=== PATIENT | male | born 1945 | race Caucasian/White ===

== ENCOUNTER 2017-05-26 13:58 | Outpatient (CLI) | payer MEDICARE, OTHER ==
--- NOTE | 2017-05-27 09:22 | XRAY Report ---
TWO VIEW CHEST: 05/26/2017 COMPARISON: Frontal chest 02/28/2011. INDICATION: Nodular density. TECHNIQUE: Two views. FINDINGS: There is scarring of the left lung base. The lungs appear otherwise clear. No pneumothorax or pleural effusion. Despite the history no nodules are demonstrated on plain film. Mediastinum unremarkable otherwise. IMPRESSION: DESPITE THE HISTORY, NO NODULES OR CONCERNING THORACIC FINDINGS ARE DEMONSTRATED. TD: 05/27/2017 09:22 [facility] Dol[facility]
== END 2017-05-26 13:59 | disposition home or self-care (01) ==
LOC: DI.N 13:58
PROVIDERS: ATTEND Family Medicine
DX: J98.4 Other disorders of lung (principal)
CPT/HCPCS: 71046

== ENCOUNTER 2018-06-15 13:25 | Outpatient (CLI) | payer MEDICARE, OTHER ==
--- NOTE | 2018-06-15 16:31 | CT Report ---
Reason: [facility] FOR SCREENING FOR CARDIO Procedure Date: 06/15/2018 Accession Number: [id number] / [id number] Procedure: CT - Low Dose Lung Cancer Screen CPT Code: FULL RESULT: EXAM CT LUNG SCREEN EXAM DATE: 06/15/2018 01:45 PM. HISTORY: 47-crsn-oyh-year-old patient with [id number] smoking history. Currently smoking: Yes. COMPARISON: CHEST 2 VIEW 05/26/2017 2:12 PM. TECHNIQUE: CT examination of the entire thorax without contrast was performed using low-dose technique. Thin section coronal, axial, sagittal and MIP axial images were obtained. In accordance with CT protocol optimization, one or more of the following dose reduction techniques were utilized for this exam: automated exposure control, adjustment of mA and/or KV based on patient size, or use of iterative reconstructive technique. FINDINGS: Nodules: Right upper lobe: 2 mm calcific density nodule 93/4. Right middle lobe: None. Right lower lobe: 5 mm semisolid nodule 141/4. Left upper lobe: 2 mm calcific density nodule 80/4. Left lower lobe: Possible 7 mm pulmonary nodule versus rounded atelectasis associated with a vertical band of pleural parenchymal opacity 141/4. Emphysema: None. Pleura: Focal pleural-based calcification left posterior pleura 114/4. Aorta: Unremarkable. Mediastinum: Unremarkable. Coronary calcifications: Mild calcification in the left anterior descending coronary artery and proximal circumflex. Other pulmonary findings: 2 thin vertical bands of pleural parenchymal opacity in the left lung base favoring scar. Thin vertical band pleural parenchymal opacity in the medial right lung base possibly additional scar. Other extrapulmonary findings: None. IMPRESSION: Lung-RADS ASSESSMENT CATEGORY: 3 - probably benign. This designation is predominantly on the basis of possible 7 mm nodule versus rounded atelectasis associated with left basilar pleural-parenchymal scar. Probability of malignancy: 1-2% RECOMMENDATION: Recommended follow up based on Lung-RADS guidelines. RADIA
== END 2018-06-15 13:26 | disposition home or self-care (01) ==
LOC: DI 13:25
PROVIDERS: ATTEND Internal Medicine
DX: Z12.2 Encounter for screening for malignant neoplasm of respiratory organs (principal); F17.210 Nicotine dependence, cigarettes, uncomplicated

== ENCOUNTER 2018-08-25 14:17 | Outpatient (CLI) | payer OTHER, MEDICARE ==
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
== END 2018-08-25 14:18 | disposition home or self-care (01) ==
LOC: DI 14:17
PROVIDERS: ATTEND Physician Assistant Medical
DX: M50.323 Other cervical disc degeneration at C6-C7 level (principal)
CPT/HCPCS: 72040

== ENCOUNTER 2019-03-20 09:25 | Outpatient (CLI) | payer MEDICARE, OTHER | END 2019-03-20 09:26 | disposition short-term general hospital (02) | LOC: EMS 09:25 | PROVIDERS: ATTEND Surgery | DX: R53.1 Weakness (principal); R55 Syncope and collapse; W18.39XA Other fall on same level, initial encounter; Y93.01 Activity, walking, marching and hiking; Y92.009 Unspecified place in unspecified non-institutional (private) residence as the place of occurrence of the external cause | CPT/HCPCS: A0425; A0429 ==

== ENCOUNTER 2020-02-21 12:26 | Outpatient (CLI) | payer MEDICARE, OTHER ==
--- NOTE | 2020-02-21 16:38 | CT Report ---
PROCEDURE: SOFT TISSUE NECK WO INDICATIONS: NON-HODGKIN LYMPHOMA TECHNIQUE: Non-contrast 3.0 mm axial sections acquired from the sella to the aortic arch. Additiona l oblique axial 3.0 mm sections acquired through the pharynx. 3 mm thick coronal reformats were gene rated. For radiation dose reduction, the following was used: automated exposure control, adjustment of mA and/or kV according to patient size. COMPARISON: Correlation is made with the accompanying chest CT, 02/21/2020. FINDINGS: Image quality: Excellent. Lymph nodes: Prominently enlarged lymph nodes are seen throughout the neck. The largest solitary lymp h node on the left can be seen within the left supraclavicular region, as on series 4 image 80 measur ing 2.5 x 1.9 cm. The largest solitary lymph node can on the right can be seen within the supraclavic ular region deeply measuring 5.3 x 5 cm in greatest axial dimension. Enlarged axillary and mediastinal lymph nodes are partially seen on this study. Vessels: Non-opacified vessels appear normal in caliber. Neck spaces: The oropharynx, nasopharynx, and pharynx demonstrate no mucosal lesions. The vocal cor ds, false vocal cords, pyriform sinuses, epiglottis, vallecula, and tongue base all appear normal. E xtramucosal spaces appear unremarkable. Glands: The parotid and submandibular glands appear normal, without stones. The thyroid is normal i n size. Miscellaneous: Visualized brain and orbits appear normal. There is partial visualization of a small to moderate right-sided pleural effusion. Superficial soft tissues appear normal. Bony degenerative changes are seen, which are worst at the C6-C7 level, where there is moderate to se roxanna disc space narrowing. IMPRESSION: Prominently enlarged lymph nodes are seen throughout the neck, which are consistent with the given hi story of lymphoma. The largest neck lymph nodes can be seen within the supraclavicular regions. Reviewed by: Miguelangel Monroe MD on 02/21/2020 3:36 PM [place] Approved by: Miguelangel Monroe MD on 02/21/2020 3:36 PM [place] Station ID: [id number]
--- NOTE | 2020-02-21 17:05 | CT Report ---
PROCEDURE: CHEST WO INDICATIONS: NON-HODGKIN LYMPHOMA TECHNIQUE: Noncontrast 5 mm thick sections acquired from the pulmonary apices to the posterior costophrenic angl es. 7 mm thick coronal and sagittal MIP reformats were then acquired. For radiation dose reduction, the following was used: automated exposure control, adjustment of mA and/or kV according to patient size. COMPARISON: CT soft tissue neck without contrast dated 02/21/2020, CT abdomen and pelvis without cont rast dated 02/21/2020 FINDINGS: Image quality: Excellent. Lungs and pleura: There is a thick-walled cavitary mass present in the left upper lobe on image 117/3 measuring approximately 3.2 x 2.5 cm. Right hilar adenopathy compresses on central right pulmonary b ronchi resulting in partial collapse of the right middle lobe and subtotal collapse of the right lowe r lobe. There is a moderately large right pleural effusion and a small left pleural effusion. Mediastinum: Heart size is normal. No pericardial effusion. There is extensive mediastinal adenopat hy. There are numerable enlarged superior mediastinal lymph nodes. On image 24/2 is a right paratrach eal lymph node measuring approximately 4.1 x 3.2 cm. In AP window lymph node on image 27/2 measures a pproximately 4.8 x 3.3 cm. A second AP window lymph node on that same image measures approximately 3. 3 x 2.3 cm. There is a huge subcarinal lymph node measuring 8.3 x 4.6 cm. Thoracic aorta and central pulmonary arteries are normal in size. Esophagus is normal in caliber. No hiatal hernia. Bones and chest wall: No suspicious bony lesions. No vertebral body compression fractures. There is a very large lower right cervical chains/supraclavicular lymph node, which was described on the neck CT. On current image 6/2 it measures 5.3 x 4.4 cm. There is extensive bilateral axillary adenopathy. Innumerable bilateral axillary lymph node chain nodes are present. The largest single right axillary lymph node measures 3.7 x 2.6 cm on current image 15/2. The largest single left axillary lymph node measures approximately 1.9 x 2.5 cm. The thyroid is normal in size. Abdomen: Visualized upper abdominal solid organs and bowel loops appear normal in the absence of con trast. IMPRESSION: 1. Cervical adenopathy as described in the prior report. 2. Remarkably extensive bilateral axillary adenopathy. 3. Remarkably extensive mediastinal adenopathy. 4. Left upper lobe cavitary mass measuring 3.2 x 2.5 cm. 5. Partial atelectasis of the right middle lobe and subtotal atelectasis of the right lower lobe, lik vee secondary to compression on central right bronchi. 6. Moderate to large right pleural effusion, small left pleural effusion. Reviewed by: Silverio Venegas MD on 02/21/2020 5:04 PM PST Approved by: Silverio Venegas MD on 02/21/2020 5:04 PM PST Station ID: [id number]
--- NOTE | 2020-02-21 17:11 | CT Report ---
PROCEDURE: Abdomen/Pelvis WO INDICATIONS: NON-HODGKIN LYMPHOMA TECHNIQUE: Noncontrast 5 mm thick sections acquired from the diaphragms to the symphysis. 5 mm coronal and sagi ttal reformats were then performed. For radiation dose reduction, the following was used: automated exposure control, adjustment of mA and/or kV according to patient size. COMPARISON: Noncontrast chest CT from the same date. FINDINGS: Image quality: Excellent. ABDOMEN: Lung bases: Moderately large right pleural effusion. Right basilar atelectasis. Small left pleural ef fusion with minimal left basilar atelectasis. Heart size is normal. Solid organs: Liver and spleen are normal in size. Gallbladder is probably present and significantl y contracted. Pancreas is normal in contours. No adrenal nodules. Kidneys are normal in size, with out hydronephrosis or nephrolithiasis. Peritoneum and bowel: Unenhanced bowel loops demonstrate normal wall thickness and caliber. No free fluid or air. Nodes and vessels: There are multiple significantly enlarged periaortic lymph nodes. Findings include a lymph node and to the right of the aorta on image 47/2 measuring 2.5 cm. A lymph node to the left of the aorta on image 8/2 measures 3.0 cm. There is bilateral common iliac and external iliac lymphad enopathy. The single largest lymph node is a distal right external iliac/inguinal lymph node on image 70/2 which measures 7.5 x 4.8 cm. Numerous other common iliac and external iliac lymph nodes are jose de jesus ntified. There is somewhat difficult to measure in the absence of intravenous contrast. A distal left external iliac/inguinal lymph node on image 73/2 measures approximately 3.5 x 3.0 cm. Aorta and infe rior vena cava are normal in caliber. Miscellaneous: No ventral hernias. PELVIS: Genitourinary: Bladder wall thickness is normal. Miscellaneous: Bilateral distal external iliac/inguinal lymph nodes as described above. More inferior ly there is shotty bilateral inguinal adenopathy. Bones: No suspicious bony lesions. No vertebral body compression fractures. IMPRESSION: 1. As stated in the chest CT report, there is a moderately large right pleural effusion, as well as a small left pleural effusion. There is right basilar atelectasis and minimal left basilar atelectasis . 2. Extensive periaortic adenopathy, as well as bilateral iliac adenopathy. 3. Findings include a very large distal right external iliac/inguinal lymph node measuring 7.5 x 4.8 cm. Reviewed by: Silverio Venegas MD on 02/21/2020 5:10 PM PST Approved by: Silverio Venegas MD on 02/21/2020 5:10 PM PST Station ID: [id number]
== END 2020-02-21 12:27 | disposition home or self-care (01) ==
LOC: DI 12:26
PROVIDERS: ATTEND Physician Assistant
DX: C85.90 Non-Hodgkin lymphoma, unspecified, unspecified site (principal); R91.8 Other nonspecific abnormal finding of lung field; J90 Pleural effusion, not elsewhere classified
CPT/HCPCS: 70490; 71250; 74176